=== PATIENT | female | born 1940 | race Caucasian/White ===

== ENCOUNTER 2016-06-27 05:23 | Inpatient (IN) | payer MEDICARE ==
[2016-06-21 13:20] LABS: APPEARANCE,URINE CLOUDY; BILIRUBIN,URINE NEGATIVE (NEGATIVE); GLUCOSE, URINE NEGATIVE (NEGATIVE); KETONES,URINE NEGATIVE (NEGATIVE); LEUKOCYTE ESTERASE,URINE NEGATIVE (NEGATIVE); NITRITE,URINE NEGATIVE (NEGATIVE); PROTEIN,URINE NEGATIVE (NEGATIVE); URINE SPECIFIC GRAVITY 1.008; UROBILINOGEN,URINE NEGATIVE mg/dL (<2.0)
[2016-06-21 13:49] LABS: ABSOLUTE BASOPHILS # (AUTO) 0.1 10^3/uL (0.0-0.2); ABSOLUTE EOSINOPHILS # (AUTO) 0.1 10^3/uL (0.0-0.6); ABSOLUTE LYMPHOCYTES (AUTO) 2.6 10^3/uL (0.5-4.7); ABSOLUTE MONOCYTES (AUTO) 0.8 10^3/uL (0.1-1.4); ABSOLUTE NEUT (AUTO) 3.7 10^3/uL (1.7-8.2); BASOPHILS % (AUTO) 0.8 % (0-2); EOSINOPHILS % (AUTO) 1.5 % (0-6); HEMATOCRIT 42.1 % (36.0-47.0); HEMOGLOBIN 14.1 g/dL (12.0-15.5); HGB HCT DIFFERENCE 0.2; LYMPHOCYTES % (AUTO) 36.4 % (13-45); MEAN CORPUSCULAR HEMOGLOBIN 31.6 pg (27.0-33.4); MEAN CORPUSCULAR HGB CONC 33.5 g/dL (32.0-36.0); MEAN CORPUSCULAR VOLUME 94 fl (80-97); MONOCYTES % (AUTO) 10.7 % (3-13); RED BLOOD COUNT 4.46 10^6/uL (3.72-5.28); RED CELL DISTRIBUTION WIDTH 12.4 % (11.5-14.0); SEGMENTED NEUTROPHILS % (AUTO) 50.6 % (42-78); WHITE BLOOD COUNT 7.3 10^3/uL (4.0-10.5)
[2016-06-21 14:16] LABS: ALANINE AMINOTRANSFERASE 65 U/L (9-52); ALBUMIN 4.6 g/dL (3.5-5.0); ALKALINE PHOSPHATASE 62 U/L (38-126); ANION GAP 14 (5-19); ASPARTATE AMINO TRANSFERASE 45 U/L (14-36); BILIRUBIN,TOTAL 0.5 mg/dL (0.2-1.3); BLOOD UREA NITROGEN 11 mg/dL (7-20); CARBON DIOXIDE 28 mmol/L (22-30); CHLORIDE 100 mmol/L (98-107); GLUCOSE 93 mg/dL (75-110); POTASSIUM 4.7 mmol/L (3.6-5.0); SODIUM 141.7 mmol/L (137-145); TOTAL PROTEIN 8.5 g/dL (6.3-8.2)
[~2016-06-27 05:23] MED LIST: ACETAMINOPHEN 100 ML IV PRN; CEFAZOLIN SODIUM 1 GM in DEXTROSE 5%-WATER 50 ML IV PRN; LACTATED RINGERS 1000 ML IV PRN; LIDOCAINE 0.5% INJ-PF (5 MG/ML) 50 ML SDV SUBCUT PRN
[2016-06-27] MEDS ORDERED: MIDAZOLAM 2 MG/2 ML INJ ONE (06:39)
[2016-06-27] MEDS ORDERED: FENTANYL CITRATE INJ/PF 250 MCG/5 ML AMPULE ONE (06:39)
[2016-06-27] MEDS ORDERED: PROPOFOL INJ 200 MG/20 ML VIAL IV ONE (06:40)
[2016-06-27] MEDS ORDERED: ACETAMINOPHEN 100 ML IV ONE (06:58)
[2016-06-27] MEDS ORDERED: BUPIVACAINE HCL 0.25% /EPINEPHRINE INJ/PF 30 ML SDV ONE (07:21)
[2016-06-27] MEDS ORDERED: MORPHINE SULFATE 10 MG/ML INJ IV PRN (08:07)
[2016-06-27] MEDS ORDERED: MEPERIDINE HCL/PF INJ 25 MG/1 ML DISP.SYRIN IV PRN (08:07)
[2016-06-27] MEDS ORDERED: FENTANYL CITRATE INJ/PF 100 MCG/2 ML AMPUL IV PRN ×3 (08:07)
[2016-06-27] MEDS ORDERED: DIPHENHYDRAMINE HCL 50 MG/ML VIAL IV PRN (08:07)
[2016-06-27] MEDS ORDERED: OXYCODONE-ACETAMINOPHEN 5-325 MG TABLET PO PRN ×2 (08:07)
[2016-06-27] MEDS ORDERED: PROMETHAZINE HCL INJ 25 MG/1 ML VIAL IV PRN ×2 (08:07)
[2016-06-27] MEDS ORDERED: ONDANSETRON HCL INJ/PF 4 MG/2 ML SDV IV PRN ×2 (08:07→10:48)
[2016-06-27] MEDS ORDERED: METHYLENE BLUE INJ/PF 10 MG/1 ML SDV ONE (08:54)
[2016-06-27] MEDS ORDERED: FUROSEMIDE INJ/PF 40 MG/4 ML SDV ONE (10:05)
[2016-06-27] MEDS ORDERED: RINGERS SOLUTION,LACTATED 1,000 ML IV PRN (10:42)
[2016-06-27] MEDS ORDERED: HYDROMORPHONE HCL INJ/PF 2 MG/ML AMPULE IV PRN ×2 (10:46→10:48)
[2016-06-27] MEDS ORDERED: OXYCODONE HCL IR 5 MG TABLET PO PRN ×2 (10:47)
--- NOTE | 2016-06-27 11:10 | OPERATIVE REPORT E ---
Operative Report NAME: YA DAVALOS : 1940 AGE: 75Y DATE OF SURGERY: 06/27/2016 ROOM: OR PREOPERATIVE DIAGNOSES: 1. Complex endometrial hyperplasia. 2. Grade IV cystocele. 3. Laxity of perineal body. POSTOPERATIVE DIAGNOSES: 1. Complex endometrial hyperplasia. 2. Grade IV cystocele. 3. Laxity of perineal body. OPERATION PERFORMED: 1. Total vaginal hysterectomy. 2. Anterior colporrhaphy. 3. Uterosacral ligament suspension. 4. Perineorrhaphy. 5. Cystoscopy. SURGEON: MICHAEL QUINONEZ M.D. LINE WORKER: Kemi ANESTHESIA: General endotracheal. ESTIMATED BLOOD LOSS: 200 mL. SPECIMEN TO PATHOLOGY: Uterus. DESCRIPTION OF PROCEDURE: After discussing risks, benefits, and alternatives of the procedure and obtaining informed consent, patient was taken to the OR where general anesthesia was achieved. She was positioned in the dorsal lithotomy position and prepped and draped in the usual standard fashion. Bladder was drained with Stout catheter. A weighted speculum was placed in the vagina. The cervix was grasped with 2 single-tooth tenaculums and circumferentially injected with 0.25% Marcaine with epinephrine. A circumferential cervical incision was made. The posterior cul-de-sac was entered sharply and a ski slope speculum was placed to protect the bowel posteriorly. Next, the bladder was dissected up off the lower uterine segment. Uterosacral ligaments were grasped with Donaldo clamps clamped, cut, suture ligated, and tagged. Next, the anterior peritoneal cavity was entered sharply and a Isha placed anteriorly to protect the bladder. The LigaSure impact device was used to serially clamp, coagulate, and cut the uterine arteries. As the upper pedicles were reached, the bowel was packed away with a laparotomy sponge. Each of the upper pedicles were coagulated and cut and the specimen removed. At this point, it was realized that we had inadvertently cut off the uterosacral ligament stitch on the patient's left. The uterosacral ligament on the left which was oozing slightly, was grasped with a Donaldo clamp and suture ligated again. This was tagged. Next, a #1 PDS was used for the Lino culdoplasty. It was passed from the vagina into the posterior cul-de-sac just below the yellow line. Each uterosacral ligament was grasped with this and incorporated. It was then exited from the peritoneal cavity to the vagina posteriorly again. This was tagged for future suspension. The peritoneal cavity was then closed with 0 Vicryl in a pursestring fashion. Next, attention was turned to the cystocele. The vagina was grasped with Allis clamps. Then, 0.25% Marcaine with lidocaine was used to hydrodissect and obtain hemostasis. A vertical incision was made midline over the body of the cystocele. The vagina was dissected off of the endopelvic fascia which was left as much as possible on the bladder. This was carried out laterally. Next, the endopelvic fascia was plicated and the cystocele reduced in an interrupted fashion with 2-0 Prolene. After the bladder was reduced, Stout catheter was removed and cystoscopy performed to assure that the ureters had not been kinked. The patient had been given methylene blue intraoperatively as well as 10 mg of Lasix. There was spill from each ureteral orifice. The cystoscope was removed. The excess vaginal mucosa was trimmed. The vagina was closed in a vertical fashion with 0 Monocryl in a running locked manner. The vagina overlying the cystocele was also closed in this fashion. The Lino culdoplasty stitch was then tied down and cystoscopy was performed again. Again, spill from each ureter was noted. The Stout catheter was replaced. Attention was turned to the patient's perineal body. This was grasped with 2 Allis'. It was injected with 0.25% Marcaine with epinephrine. In an elliptical fashion, the scar tissue at the site of old obstetrical trauma overlying the peroneal body was excised. The bulbocavernosus muscles were grasped with 2-0 Vicryl and reapproximated. The transverse perineal muscle was also grasped and reapproximated with 2-0 Vicryl. Next, the mucosal tissue was closed with 3-0 Monocryl. Hemostasis was observed. The vagina was irrigated and a pack moistened with Surgilube was placed in the vagina. The patient was taken out of dorsal lithotomy, extubated, and to recovery in stable condition. All sponge, needle, lap, and instrument counts were correct x2. DICTATING PHYSICIAN: MICHAEL QUINONEZ M.D. [id number] PHY#: [id number] ID: [id number] JOB#: [id number] ACCT: [id number] cc:MICHAEL QUINONEZ M.D. > GRETCHEN
[2016-06-27] MEDS ORDERED: (PENDING PHARMACY ID) (Esomeprazole Mag Trihydrate [Nexium] 40 MG) PO PRN (11:39)
[2016-06-27] MEDS ORDERED: FUROSEMIDE INJ/PF 20 MG/2 ML SDV ONE (12:45)
[2016-06-27] MEDS ORDERED: LIDOCAINE 2% INJ-PF (20 MG/ML) 10 ML AMPUL ONE (12:46)
[2016-06-27] MEDS ORDERED: VECURONIUM BROMIDE INJ 10 MG VIAL IV ONE (12:46)
[2016-06-27] MEDS ORDERED: ONDANSETRON HCL INJ/PF 4 MG/2 ML SDV ONE (12:46)
[2016-06-27] MEDS ORDERED: METOCLOPRAMIDE HCL INJ/PF 10 MG/2 ML SDV ONE (12:46)
[2016-06-27] MEDS ORDERED: DEXAMETHASONE SOD PHOSPHATE INJ 4 MG/1 ML VIAL ONE (12:46)
[2016-06-27] MEDS ORDERED: SUCCINYLCHOLINE CHLORIDE INJ 200 MG/10 ML VIAL ONE (12:46)
[2016-06-27] MEDS: ACETAMINOPHEN 100 ML IV SCH ×3 (13:03→23:29)
[2016-06-27] MEDS: CEFAZOLIN SODIUM 1 GM in DEXTROSE 5%-WATER 50 ML IV SCH ×2 (14:23→22:20)
[2016-06-27] MEDS ORDERED: TRAZODONE HCL 50 MG TABLET PO SCH (22:00)
[2016-06-27] MEDS ORDERED: ATORVASTATIN CALCIUM 20 MG TABLET PO SCH (22:00)
[2016-06-28] MEDS: ACETAMINOPHEN 100 ML IV SCH (06:06)
[2016-06-28] MEDS ORDERED: (PENDING PHARMACY ID) (Valsartan/Hydrochlorothiazide [Valsartan-Hctz 320-25 Mg Tab] 1 EACH PO SCH (08:00)
[2016-06-28] MEDS ORDERED: HYDROCHLOROTHIAZIDE 25 MG TABLET PO SCH (08:00)
[2016-06-28] MEDS ORDERED: LANSOPRAZOLE 30 MG TAB.RAP.DR PO SCH ×2 (08:00)
[2016-06-28] MEDS ORDERED: VALSARTAN 160 MG TABLET PO SCH (08:00)
[2016-06-28 08:56] VITALS: BP 161/80
[2016-06-28] MEDS ORDERED: CLOBETASOL PROPIONATE 0.05% CREAM 15 GM TP PRN (09:01)
[2016-06-28] MEDS ORDERED: LEVOTHYROXINE SODIUM 0.1 MG TABLET PO SCH (10:00)
[2016-06-28] MEDS ORDERED: SENNOSIDES/DOCUSATE 8.6-50 MG 1 EACH TABLET PO SCH (10:00)
--- NOTE | 2016-07-05 08:13 | DISCHARGE SUMMARY E ---
Discharge Summary NAME: Ludmila Sylvester : 1940 AGE: 75Y ADMITTED: 06/27/2016 DISCHARGED: 06/28/2016 INDICATION FOR ADMISSION: Complex endometrial hyperplasia and grade 4 cystocele. HOSPITAL COURSE: The patient is a 75-year-old female who was admitted with known complex endometrial hyperplasia and grade 4 cystocele. She underwent total vaginal hysterectomy with anterior colporrhaphy, uterosacral ligament suspension, perineorrhaphy, and cystoscopy on the day of admission. The cystoscopy did show patent ureters at the end of the procedure. Her postop course was unremarkable. She had excellent urine output. She was by the time of discharge the following morning ambulating, tolerating p.o., and had voided without difficulty. She had only required Tylenol for pain management. DISCHARGE DIAGNOSIS: Same. DISCHARGE DIET: Regular. DISCHARGE ACTIVITY: Pelvic rest and light activity. DISCHARGE MEDICATIONS: The patient was to continue with her usual home medications. She was to follow up in 1 week, sooner should problems arise. DICTATING PHYSICIAN: MICHAEL QUINONEZ M.D. [id number] PHY#: [id number] ID: [id number] JOB#: [id number] ACCT: [id number] cc:MICHAEL QUINONEZ M.D. >
== END 2016-06-28 09:40 | disposition home or self-care (01) | DRG 743 ==
LOC: INOR 05:23 → 2S 11:08
PROVIDERS: ADMIT Specialist; ATTEND Specialist
PROC: 0UTC7ZZ Resection of Cervix, Via Natural or Artificial Opening (ICD-10-PCS; 2016-06-27)
PROC: 0JQC0ZZ Repair Pelvic Region Subcutaneous Tissue and Fascia, Open Approach (ICD-10-PCS; 2016-06-27)
PROC: 0WQN0ZZ Repair Female Perineum, Open Approach (ICD-10-PCS; 2016-06-27)
PROC: 0UT97ZZ Resection of Uterus, Via Natural or Artificial Opening (ICD-10-PCS; principal; 2016-06-27 07:30)
DX: N85.01 Benign endometrial hyperplasia (principal); N81.10 Cystocele, unspecified; F41.9 Anxiety disorder, unspecified; M19.90 Unspecified osteoarthritis, unspecified site; K58.9 Irritable bowel syndrome, unspecified; G25.81 Restless legs syndrome; G47.00 Insomnia, unspecified; I10 Essential (primary) hypertension; E78.5 Hyperlipidemia, unspecified; E03.9 Hypothyroidism, unspecified; R73.03 Prediabetes; Z88.8 Allergy status to other drugs, medicaments and biological substances; Z88.2 Allergy status to sulfonamides; Z91.011 Allergy to milk products; Z82.49 Family history of ischemic heart disease and other diseases of the circulatory system
CPT/HCPCS: 36415; 80053; 81001; 85025; 86850; 86900; 86901; 87086; 88307; 944; J0131; J0330; J0690; J1100; J1940; J2250; J2405; J2704; J2765; J3010; J3490; J7120; Q9968

== ENCOUNTER 2018-11-28 20:22 | Emergency (ER) | payer MEDICARE ==
[2018-11-28 23:09] LABS: BILIRUBIN,URINE NEGATIVE (NEGATIVE); GLUCOSE, URINE 50 mg/dL (NEGATIVE); KETONES,URINE TRACE mg/dL (NEGATIVE); LEUKOCYTE ESTERASE,URINE NEGATIVE (NEGATIVE); NITRITE,URINE POSITIVE (NEGATIVE); PROTEIN,URINE >=500 mg/dL (NEGATIVE); URINE SPECIFIC GRAVITY 1.018
[2018-11-28 23:10] LABS: APPEARANCE,URINE TURBID; COLOR,URINE RED
--- NOTE | 2018-11-28 23:27 | ER Document Report ---
HPI - HPI Time Seen by Provider: 11/28/18 23:13 Pain Level: 4 Context: Patient is a 78-year-old female with a history of hypertension, UTIs, hypothyroidism who presents to the emergency department with urinary symptoms. Patient states that 24 hours ago she developed burning with urination, frequency, urgency and has not noticed blood in the urine. Patient states she has had multiple UTIs in the past. Patient states it feels the same. Patient states her last urinary tract infection was 6 months ago. Patient states she has taken Azo with no relief. Patient denies fever, chills or flank pain. Patient states she will have intermittent lower back aching. Patient denies vaginal bleeding or discharge. - REPRODUCTIVE Reproductive: DENIES: : Past Medical History - General Information source: Patient - Social History Smoking Status: Never Smoker Cigarette use (# per day): No Chew tobacco use (# tins/day): No Frequency of alcohol use: None Drug Abuse: None Lives with: Spouse/Significant other Family History: None - Past Medical History Cardiac Medical History: Reports: Hx Hypertension Denies: Hx Atrial Fibrillation, Hx Congestive Heart Failure, Hx Coronary Artery Disease, Hx Heart Attack, Hx Hypercholesterolemia, Hx Peripheral Vascular Disease, Hx Heart Murmur Pulmonary Medical History: Reports: Hx Asthma - no symptoms since her 20's, Hx Bronchitis, Hx Tuberculosis - hypothyroid Denies: Hx COPD, Hx Pneumonia EENT Medical History: Reports: None Neurological Medical History: Reports: None. Denies: Hx Cerebrovascular Accident, Hx Seizures Endocrine Medical History: Reports: None. Denies: Hx Graves' Disease, Hx Hyperthyroidism, Hx Hypothyroidism Renal/ Medical History: Reports: None. Denies: Hx Ovarian Cysts Malignancy Medical History: Reports: None. Denies: Hx Breast Cancer, Hx Cervical Cancer, Hx Ovarian Cancer GI Medical History: Reports: Hx Gastroesophageal Reflux Disease - prevacid , Hx Irritable Bowel - sometimes . Denies: Hx Crohn's Disease, Hx Hepatitis, Hx Hiatal Hernia, Hx Liver Failure, Hx Pancreatitis, Hx Ulcer Musculoskeletal Medical History: Reports Hx Arthritis - hands bilateral, scapula - cervical , Denies Hx Fibromyalgia, Denies Hx Muscular Dystrophy, Denies Hx Systemic Lupus Erythematosus Skin Medical History: Reports None Psychiatric Medical History: Reports: None Traumatic Medical History: Reports: None. Denies: Hx Fractures Infectious Medical History: Reports: None. Denies: Hx Hepatitis Past Surgical History: Denies: Hx Appendectomy, Hx Bowel Surgery, Hx Section, Hx Cholecystectomy, Hx Colostomy, Hx Coronary Artery Bypass Graft, Hx Gastric Bypass Surgery, Hx Herniorrhaphy, Hx Hysterectomy, Hx Mastectomy, Hx Open Heart Surgery, Hx Pacemaker, Hx Tonsillectomy, Hx Tubal Ligation - Immunizations Hx Diphtheria, Pertussis, Tetanus Vaccination: No Hx Pneumococcal Vaccination: 05/29/14 Vertical Provider Document - CONSTITUTIONAL Agree With Documented VS: Yes Exam Limitations: No Limitations General Appearance: No Apparent Distress - INFECTION CONTROL TRAVEL OUTSIDE OF THE [place] IN LAST 30 DAYS: No - HEENT HEENT: Atraumatic, Normocephalic - NECK Neck: Normal Inspection - RESPIRATORY Respiratory: Breath Sounds Normal, No Respiratory Distress - CARDIOVASCULAR Cardiovascular: Regular Rate, Regular Rhythm - GI/ABDOMEN Gastrointestinal: Abdomen Soft, Abdomen Non-Tender - BACK Back: Normal Inspection Notes: No CVA tenderness. - NEURO Level of Consciousness: Awake, Alert, Appropriate - DERM Integumentary: Warm, Dry, No Rash Course - Re-evaluation Re-evalutation: 11/28/18 23:29 Show examination patient is sitting upright in stretcher no acute distress. Patient is nontoxic-appearing. - Vital Signs Vital signs: Temp Pulse Resp BP Pulse Ox 98.4 F 88 20 158/61 H 97 11/28/18 20:52 11/28/18 20:52 11/28/18 20:52 11/28/18 20:52 11/28/18 20:52 - Laboratory Laboratory results interpreted by me: 11/28/18 20:50 Urine Protein >=500 H Urine Glucose (UA) 50 H Urine Ketones TRACE H Urine Blood SMALL H Urine Nitrite POSITIVE H Urine Urobilinogen 4.0 H Urine Ascorbic Acid 40 H Discharge - Discharge Clinical Impression: Acute cystitis with hematuria Urinary tract infection Qualifiers: Urinary tract infection type: acute cystitis Hematuria presence: with hematuria Qualified Code(s): N30.01 - Acute cystitis with hematuria Condition: Stable Disposition: HOME, SELF-CARE Instructions: Cephalexin ([facility]), Urinary Anesthetic Agent ([facility]), Urinary Tract Infection ([facility]) Additional Instructions: Today you were seen in the emergency department for urinary symptoms. Your urinalysis did did show a urinary tract infection. You are being placed on Keflex which is an antibiotic to treat this infection as well as Pyridium. Pyridium is for bladder spasms and pelvic discomfort. Please return to the emergency department if you develop fever, chills, flank pain, inability to urinate. Urine culture has been sent to the lab. You will be contacted if there needs to be a change in your antibiotic. Please continue to push fluids, and estimated 3 to 4 quarts a day. It was noted that you had protein in your urine - please follow up with your primary care physician to have a repeat urinalysis performed to check for improvement of UTI and protein. Urinary Tract Infection Your evaluation indicates that you have a urinary tract infection. This is due to germs growing in the bladder. This is a common problem. This infection usually responds quickly to antibiotics. Your antibiotic should be taken exactly as prescribed. Drink plenty of fluids -- three to four quarts a day. Occasionally, a bladder anesthetic will be prescribed to help stop the feeling of urgency until the antibiotic has a chance to clear the infection. This may cause your urine to be dark orange. Certain urine infections require a culture. If the doctor obtained a culture, the results will be back in two days. You should call to see if a change in treatment is needed. A repeat urinalysis after you finish treatment is often recommended. The physician will let you know if further testing is required. Call the doctor if you develop fever, chills, flank pain, inability to urinate, or blood in the urine. Prescriptions: Cephalexin Monohydrate [Keflex 500 mg Capsule] 500 mg PO BID 7 Days #14 capsule Phenazopyridine HCl [Pyridium 200 mg Tablet] 200 mg PO TID #6 tablet Referrals: LUISA TOPETE MD [Primary Care Provider] - Follow up as needed
[2018-11-28] MEDS ORDERED: PHENAZOPYRIDINE HCL 200 MG TABLET PO ONE (23:33)
[2018-11-28] MEDS ORDERED: CEPHALEXIN 500 MG CAPSULE PO ONE (23:33)
[2018-11-29 00:18] VITALS: BP 138/67
== END 2018-11-29 00:18 | disposition home or self-care (01) ==
LOC: ER 20:22
DX: N30.01 Acute cystitis with hematuria (principal); R39.198 Other difficulties with micturition; R30.9 Painful micturition, unspecified; R35.0 Frequency of micturition; R39.15 Urgency of urination; I10 Essential (primary) hypertension; J45.909 Unspecified asthma, uncomplicated
CPT/HCPCS: 99283; 87086; 87088; 81001; 87186; A9270 ×2; J3490